=== PATIENT | female | born 1990 | race African-American/Black ===

== ENCOUNTER 2016-09-22 02:33 | Emergency (ER) | payer MEDICAID ==
[2016-09-22] MEDS ORDERED: ONDANSETRON HCL INJ/PF 4 MG/2 ML SDV IV ONE (03:25)
[2016-09-22] MEDS ORDERED: KETOROLAC TROMETHAMINE INJ/PF 30 MG/1 ML SDV IV ONE (03:25)
--- NOTE | 2016-09-22 03:28 | ER Document Report ---
Addendum entered and electronically signed by TYRA GRAY NP 09/22/16 08:31 : Course - Re-evaluation Re-evalutation: 09/22/16 08:28 Patient was evaluated by psych provider this morning and the ED and has arranged for follow-up at [facility] upon discharge from the ED this morning. Patient remains hemodynamically stable, in no distress, calm and cooperative, neurologically intact, able to ambulate independently and steadily, and appears stable for discharge. Fiance at bedside. - Vital Signs Vital signs: Temp Pulse Resp BP Pulse Ox 97.9 F 83 20 121/79 98 09/22/16 08:20 09/22/16 08:20 09/22/16 08:20 09/22/16 08:20 09/22/16 08:20 - Laboratory Result Diagrams: 09/22/16 03:35 09/22/16 03:35 Laboratory results interpreted by me: 09/22/16 09/22/16 09/22/16 03:35 03:35 03:35 Seg Neuts % (Manual) 33 L Eosinophils % (Manual) 7 H Sodium 147.8 H AST 70 H Total Protein 8.4 H Beta HCG, Quant Urine Blood MODERATE H Ur Leukocyte Esterase TRACE H Serum Alcohol 315 H* 09/22/16 03:35 Seg Neuts % (Manual) Eosinophils % (Manual) Sodium AST Total Protein Beta HCG, Quant 28.37 H Urine Blood Ur Leukocyte Esterase Serum Alcohol Discharge - Discharge Clinical Impression: Grief at loss of child Alcohol intoxication Qualifiers: Complication of substance-induced condition: with unspecified complication Qualified Code(s): F10.129 - Alcohol abuse with intoxication, unspecified Condition: Stable Disposition: HOME, SELF-CARE Instructions: Acute Alcohol Intoxication ([facility]) Additional Instructions: Follow up at [facility] this morning as discussed. Return to the Emergency Department for any worsening symptoms or concerns. Referrals: SCOTT GERARDO MD [Primary Care Provider] - Follow up as needed Original Note: ED General - General Chief Complaint: Psych Problem Stated Complaint: ABDOMINAL PAIN, VAGINAL PAIN Notes: Patient is a 26-year-old female that comes emergency department for chief complaint of alcohol intoxication, pains in her breasts, and intermittent cramps in the lower abdomen with some scant vaginal bleeding. Patient states that 5 days ago she had a miscarriage, she is , she states she was at 20 weeks, she states she was in [place] and they delivered the baby for her. She states she has been self-medicating at home with alcohol and has been very upset, she denies SI or HI, she states she is not 100% sure why she came tonight. She denies any daily medications, she denies any recreational drugs she denies any psychiatric history previously. Patient's fianc is at bedside, he verifies her statements. TRAVEL OUTSIDE OF THE [place] IN LAST 30 DAYS: No - Related Data Allergies/Adverse Reactions: iodine [Iodine] Allergy (Verified 11/05/14 01:38) Past Medical History - General Information source: Patient - Social History Smoking Status: Never Smoker Drug Abuse: None Lives with: Spouse/Significant other Family History: Reviewed & Not Pertinent Patient has suicidal ideation: No Patient has homicidal ideation: No Pulmonary Medical History: Reports: Hx Asthma Renal/ Medical History: Denies: Hx Peritoneal Dialysis Surgical Hx: Negative - Immunizations Immunizations up to date: No Hx Diphtheria, Pertussis, Tetanus Vaccination: Yes Review of Systems - Review of Systems Constitutional: No symptoms reported EENT: No symptoms reported Cardiovascular: No symptoms reported Respiratory: No symptoms reported Gastrointestinal: See HPI Genitourinary: No symptoms reported Female Genitourinary: See HPI Musculoskeletal: No symptoms reported Skin: No symptoms reported Hematologic/Lymphatic: No symptoms reported Neurological/Psychological: See HPI Physical Exam - Vital signs Vitals: Temp Pulse Resp BP Pulse Ox 97.2 F 100 16 127/72 H 96 09/22/16 02:46 09/22/16 02:46 09/22/16 02:46 09/22/16 02:46 09/22/16 02:46 Interpretation: Normal - General General appearance: Other - Patient occasionally slurs her words, slightly sedated in appearance, however she is mostly alert, speaks clearly with most sentences, forms clear thoughts and answers questions appropriately - HEENT Head: Normocephalic, Atraumatic Eyes: Normal Conjunctiva: Normal Extraocular movements intact: Yes Eyelashes: Normal Pupils: PERRL Nasal: Normal Mouth/Lips: Normal Mucous membranes: Normal Pharynx: Normal Neck: Normal - Respiratory Respiratory status: No respiratory distress Chest status: Nontender Breath sounds: Normal. No: Decreased air movement, Nonproductive cough, Wheezing Chest palpation: Normal - Cardiovascular Rhythm: Regular. No: Tachycardia Heart sounds: Normal auscultation, S1 appreciated, S2 appreciated Murmur: No - Abdominal Inspection: Other - Slightly rounded abdomen Tenderness: Tender - Very mild generalized tenderness, no significant tenderness noted, no guarding - Back Back: Normal, Nontender. No: Tender, CVA tenderness - Extremities General upper extremity: Normal inspection, Nontender, Normal color, Normal ROM , Normal temperature General lower extremity: Normal inspection, Nontender, Normal color, Normal ROM , Normal temperature, Normal weight bearing. 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 Patient given Toradol and Zofran for complaints of pain, after this she slept soundly and peacefully. 09/22/16 06:51 Patient reevaluated, plan is to continue to sober up and did speak with psychiatry, no current complaints. 09/22/16 07:20 Patient introduced to Tyra AYERS at bedside, patient is alert, appears to be sober, still states that she would like to speak to psychiatry but has no other current complaints. - Vital Signs Vital signs: Temp Pulse Resp BP Pulse Ox 97.2 F 100 16 127/72 H 96 09/22/16 02:46 09/22/16 02:46 09/22/16 02:46 09/22/16 02:46 09/22/16 02:46 - Laboratory Result Diagrams: 09/22/16 03:35 09/22/16 03:35 Laboratory results interpreted by me: 09/22/16 09/22/16 09/22/16 03:35 03:35 03:35 Seg Neuts % (Manual) 33 L Eosinophils % (Manual) 7 H Sodium 147.8 H AST 70 H Total Protein 8.4 H Beta HCG, Quant Urine Blood MODERATE H Ur Leukocyte Esterase TRACE H Serum Alcohol 315 H* 09/22/16 03:35 Seg Neuts % (Manual) Eosinophils % (Manual) Sodium AST Total Protein Beta HCG, Quant 28.37 H Urine Blood Ur Leukocyte Esterase Serum Alcohol Discharge - Discharge Clinical Impression: Grief at loss of child Alcoholic intoxication Qualifiers: Complication of substance-induced condition: with unspecified complication Qualified Code(s): F10.129 - Alcohol abuse with intoxication, unspecified Condition: Stable Disposition: HOME, SELF-CARE
[2016-09-22 03:56] LABS: APPEARANCE,URINE SLIGHTLY-CLOUDY; BILIRUBIN,URINE NEGATIVE (NEGATIVE); GLUCOSE, URINE NEGATIVE (NEGATIVE); KETONES,URINE NEGATIVE (NEGATIVE); LEUKOCYTE ESTERASE,URINE TRACE (NEGATIVE); NITRITE,URINE NEGATIVE (NEGATIVE); PROTEIN,URINE NEGATIVE (NEGATIVE); URINE SPECIFIC GRAVITY 1.014; UROBILINOGEN,URINE NEGATIVE mg/dL (<2.0)
[2016-09-22 04:08] LABS: ALANINE AMINOTRANSFERASE 41 U/L (9-52); ALBUMIN 4.2 g/dL (3.5-5.0); ALKALINE PHOSPHATASE 89 U/L (38-126); ANION GAP 13 (5-19); ASPARTATE AMINO TRANSFERASE 70 U/L (14-36); BILIRUBIN,TOTAL 0.6 mg/dL (0.2-1.3); BLOOD UREA NITROGEN 7 mg/dL (7-20); CALCIUM 9.3 mg/dL (8.4-10.2); CARBON DIOXIDE 28 mmol/L (22-30); CHLORIDE 107 mmol/L (98-107); CREATININE RESULT 0.66 mg/dL (0.52-1.25); GLUCOSE 82 mg/dL (75-110); POTASSIUM 4.8 mmol/L (3.6-5.0); SODIUM 147.8 mmol/L (137-145); TOTAL PROTEIN 8.4 g/dL (6.3-8.2); URINE BARBITURATES SCREEN NEGATIVE; URINE METHADONE SCREEN NEGATIVE; URINE OPIATES LOW NEGATIVE
[2016-09-22 04:11] LABS: HEMATOCRIT 36.3 % (36.0-47.0); HEMOGLOBIN 12.4 g/dL (12.0-15.5); HGB HCT DIFFERENCE 0.9; MEAN CORPUSCULAR HEMOGLOBIN 32.7 pg (27.0-33.4); MEAN CORPUSCULAR VOLUME 96 fl (80-97); RED BLOOD COUNT 3.78 10^6/uL (3.72-5.28); WHITE BLOOD COUNT 6.6 10^3/uL (4.0-10.5)
[2016-09-22 04:20] LABS: ALCOHOL 315 mg/dL (NONE DETECTED)
[2016-09-22 04:27] LABS: BASOPHILS % (MANUAL) 0 % (0-2); EOSINOPHILS % (MANUAL) 7 % (0-6); LYMPHOCYTES % (MANUAL) 45 % (13-45); TOTAL CELLS COUNTED 100; TOXIC GRANULATION SLIGHT
[2016-09-22 04:28] LABS: BURR CELLS SLIGHT; OVALOCYTES SLIGHT; POIKILOCYTOSIS SLIGHT; SCHISTOCYTES SLIGHT; TEAR DROP CELLS SLIGHT
[2016-09-22 07:28] LABS: URINE PHENCYCLIDINE SCREEN NEGATIVE
[2016-09-22 08:23] VITALS: BP 121/79
--- NOTE | 2016-09-24 14:17 | PSYCHOLOGICAL NOTE ---
Psych Note - Psych Note Psych Note: Patient is a 26-year-old female that comes emergency department for chief complaint of alcohol intoxication, pains in her breasts, and intermittent cramps in the lower abdomen with some scant vaginal bleeding. Patient states that 5 days ago she had a miscarriage, she is , she states she was at 20 weeks, she states she was in [place] and they delivered the baby for her. She states she has been self-medicating at home with alcohol and has been very upset, she denies SI or HI, she states she is not 100% sure why she came tonight. Patient disclosed that she had a miscarriage on the eighth and that she was 20 weeks along. She continued disclosed that she found that her uncle the next day however he actually the day she miscarried. Patient denies suicidal and homicidal ideation but admits to drinking alcohol as a way to cope. Patient states that she is having a hard time dealing with the pain in her chest. Patient states she thinks she had milk come in for the baby that she lost. Patient's fianc was at bedside and stated that has been very hard because it's only been 1 week. Patient is alert and orientated to person place time and circumstance. Patient' s mood is dysphoric with tearful affect. Patient denies suicidal homicidal ideation. Patient denies auditory visual hallucinations; no delusions are noted. Thought process is logical organized and linear however suffering from bereavement. Conversational speech was within normal rate tone and prosody. Eye contact was well maintained. Intellectual abilities appear within average range. Attention and concentration are fair. Insight, judgment, impulse control are fair. Bereavement Impression\plan: Patient is psychiatrically cleared for discharge. Patient is suffering from multiple losses and going through bereavement. At this time he would not be complicated bereavement has it is only been 1 week. Patient agrees to go to outpatient services. Patient's agrees to lock up all medications and alcohol in the home as to not to attempt either one of them to self medicate. Clinician conducted psychoeducation on grief process; i.e. the stages of grief. Patient will be following up with A outpatient services upon release from [facility] ED. Attending physician is in agreement with recommendations and disposition.
== END 2016-09-22 08:37 | disposition home or self-care (01) ==
LOC: ER 02:33
DX: O99.345 Other mental disorders complicating the puerperium (principal); F43.21 Adjustment disorder with depressed mood; O99.315 Alcohol use complicating the puerperium; F10.120 Alcohol abuse with intoxication, uncomplicated; Y90.8 Blood alcohol level of 240 mg/100 ml or more; O92.29 Other disorders of breast associated with pregnancy and the puerperium; O90.89 Other complications of the puerperium, not elsewhere classified; R10.30 Lower abdominal pain, unspecified; O99.53 Diseases of the respiratory system complicating the puerperium; J45.909 Unspecified asthma, uncomplicated
CPT/HCPCS: 99284; 96374; 96375; 36415; 87086; 80307 ×2; 84702; 85025; 80053; 81001; J1885; J2405

== ENCOUNTER 2016-10-03 20:47 | Emergency (ER) | payer MEDICAID ==
--- NOTE | 2016-10-03 21:25 | ER Document Report ---
ED Medical Screen (RME) - General Stated Complaint: ABDOMINAL PAIN Time seen by provider: 21:24 Mode of Arrival: Ambulatory Information source: Patient TRAVEL OUTSIDE OF THE [place] IN LAST 30 DAYS: No - HPI Patient complains to provider of: suprapubic pain Onset: Yesterday Onset/Duration: Gradual Quality of pain: Achy, Cramping Severity: Moderate Pain Level: 3 Associated Symptoms: Nausea Exacerbated by: Denies Relieved by: Denies Similar symptoms previously: Yes Recently seen / treated by doctor: Yes - recent miscarriage 3 weeks ago - Related Data Allergies/Adverse Reactions: iodine [Iodine] Allergy (Verified 11/05/14 01:38) Past Medical History Pulmonary Medical History: Reports: Hx Asthma Renal/ Medical History: Denies: Hx Peritoneal Dialysis - Immunizations Immunizations up to date: No Hx Diphtheria, Pertussis, Tetanus Vaccination: Yes
[2016-10-03] MEDS ORDERED: ACETAMINOPHEN 325 MG TABLET PO ONE (21:31)
[2016-10-03 21:50] LABS: HEMATOCRIT 40.5 % (36.0-47.0); HEMOGLOBIN 13.8 g/dL (12.0-15.5); HGB HCT DIFFERENCE 0.9; MEAN CORPUSCULAR HEMOGLOBIN 33.6 pg (27.0-33.4); MEAN CORPUSCULAR VOLUME 99 fl (80-97); RED CELL DISTRIBUTION WIDTH 13.5 % (11.5-14.0); WHITE BLOOD COUNT 5.6 10^3/uL (4.0-10.5)
[2016-10-03 21:58] LABS: ALANINE AMINOTRANSFERASE 30 U/L (9-52); ALKALINE PHOSPHATASE 82 U/L (38-126); ANION GAP 14 (5-19); ASPARTATE AMINO TRANSFERASE 40 U/L (14-36); BILIRUBIN,TOTAL 0.6 mg/dL (0.2-1.3); BLOOD UREA NITROGEN 7 mg/dL (7-20); CALCIUM 10.1 mg/dL (8.4-10.2); CARBON DIOXIDE 25 mmol/L (22-30); CHLORIDE 106 mmol/L (98-107); CREATININE RESULT 0.73 mg/dL (0.52-1.25); GLUCOSE 83 mg/dL (75-110); LIPASE 232.4 U/L (23-300); POTASSIUM 4.6 mmol/L (3.6-5.0); SODIUM 145.3 mmol/L (137-145); TOTAL PROTEIN 8.6 g/dL (6.3-8.2)
[2016-10-03 22:08] LABS: APPEARANCE,URINE CLEAR; BILIRUBIN,URINE NEGATIVE (NEGATIVE); GLUCOSE, URINE NEGATIVE (NEGATIVE); KETONES,URINE NEGATIVE (NEGATIVE); LEUKOCYTE ESTERASE,URINE NEGATIVE (NEGATIVE); NITRITE,URINE NEGATIVE (NEGATIVE); PROTEIN,URINE NEGATIVE (NEGATIVE); URINE SPECIFIC GRAVITY 1.003; UROBILINOGEN,URINE NEGATIVE mg/dL (<2.0)
[2016-10-03 22:09] LABS: BASOPHILS % (MANUAL) 1 % (0-2); EOSINOPHILS % (MANUAL) 6 % (0-6); LYMPHOCYTES % (MANUAL) 64 % (13-45); TOTAL CELLS COUNTED 100
[2016-10-03 22:11] LABS: HYPOCHROMASIA SLIGHT
[2016-10-03] MEDS ORDERED: HYDROCODONE/ACETAMINOPHEN 5-325 MG 6 TAB/DSPK PO PRN (22:39)
--- NOTE | 2016-10-03 22:40 | ER Document Report ---
ED GI/ - General Chief Complaint: Pelvic Pain Stated Complaint: ABDOMINAL PAIN Time seen by provider: 22:39 Mode of Arrival: Ambulatory Information source: Patient TRAVEL OUTSIDE OF THE [place] IN LAST 30 DAYS: No - HPI Patient complains to provider of: Abdominal pain Onset: Last week Timing/Duration: Persistent Quality of pain: Achy, Cramping Severity at maximum: Mild Severity in ED: Mild Pain Level: 1 Location: Suprapubic, Pelvis Vaginal bleeding (Compared to normal period): None Associated symptoms: Dysuria Exacerbated by: Denies Relieved by: Denies Similar symptoms previously: Yes Recently seen / treated by doctor: Yes Notes: 10/04/16 01:19 Patient is a 26-year-old female who presents to the emergency room complaining of suprapubic pelvic pain that's been going on for the past week or so, she reports a history of a miscarriage approximately 3 weeks ago, she denies any vaginal bleeding or irregular discharge, she is having some pressure when urinating, denies any fever, no diarrhea, having normal bowel movements, states she missed a follow-up with [facility] recently - Related Data Allergies/Adverse Reactions: iodine [Iodine] Allergy (Verified 10/03/16 21:40) Past Medical History - General Information source: Patient - Social History Smoking Status: Never Smoker Chew tobacco use (# tins/day): No Frequency of alcohol use: None Drug Abuse: None Family History: Reviewed & Not Pertinent Patient has suicidal ideation: No Patient has homicidal ideation: No Pulmonary Medical History: Reports: Hx Asthma Renal/ Medical History: Denies: Hx Peritoneal Dialysis - Immunizations Immunizations up to date: No Hx Diphtheria, Pertussis, Tetanus Vaccination: Yes Review of Systems - Review of Systems Constitutional: No symptoms reported EENT: No symptoms reported Cardiovascular: No symptoms reported Respiratory: No symptoms reported Gastrointestinal: See HPI Genitourinary: See HPI Female Genitourinary: See HPI Musculoskeletal: No symptoms reported Skin: No symptoms reported Hematologic/Lymphatic: No symptoms reported Neurological/Psychological: No symptoms reported -: Yes All other systems reviewed and negative Physical Exam - Vital signs Vitals: Temp Pulse Resp BP Pulse Ox 97.8 F 80 16 108/68 98 10/03/16 22:40 10/03/16 22:40 10/03/16 22:40 10/03/16 22:40 10/03/16 22:40 Interpretation: Normal - General General appearance: Appears well, Alert - HEENT Head: Normocephalic, Atraumatic Eyes: Normal Pupils: PERRL - Respiratory Respiratory status: No respiratory distress Chest status: Nontender Breath sounds: Normal Chest palpation: Normal - Cardiovascular Rhythm: Regular Heart sounds: Normal auscultation Murmur: No - Abdominal Inspection: Normal Distension: No distension Bowel sounds: Normal Tenderness: Nontender Organomegaly: No organomegaly - Back Back: Normal, Nontender - Extremities General upper extremity: Normal inspection, Nontender, Normal color, Normal ROM , Normal temperature General lower extremity: Normal inspection, Nontender, Normal color, Normal ROM , Normal temperature, Normal weight bearing. No: Tena's sign - Neurological Neuro grossly intact: Yes Cognition: Normal Orientation: AAOx4 [place] Coma Scale Eye Opening: Spontaneous [place] Coma Scale Verbal: Oriented [place] Coma Scale Motor: Obeys Commands [place] Coma Scale Total: 15 Speech: Normal Motor strength normal: LUE, RUE, LLE, RLE Sensory: Normal - Psychological Associated symptoms: Normal affect, Normal mood - Skin Skin Temperature: Warm Skin Moisture: Dry Skin Color: Normal Course - Re-evaluation Re-evalutation: 10/04/16 01:20 Physical exam findings are unremarkable, lab findings unremarkable and discussed with patient, she was given a dose of Tylenol in the emergency room and reports feeling quite a bit better, she was advised to follow-up with OB/ [facility] within the next 1-2 days or return if symptoms worsen, patient acknowledges understanding and agreement with this plan - Vital Signs Vital signs: Temp Pulse Resp BP Pulse Ox 97.8 F 80 16 108/68 98 10/03/16 22:40 10/03/16 22:40 10/03/16 22:40 10/03/16 22:40 10/03/16 22:40 - Laboratory Result Diagrams: 10/03/16 21:31 10/03/16 21:31 Laboratory results interpreted by me: 10/03/16 10/03/16 21:31 21:31 MCV 99 H MCH 33.6 H Seg Neuts % (Manual) 15 L Lymphocytes % (Manual) 64 H Abs Neuts (Manual) 0.8 L Sodium 145.3 H AST 40 H Total Protein 8.6 H Discharge - Discharge Clinical Impression: Abdominal pain Qualifiers: Abdominal location: lower abdomen, unspecified Qualified Code(s): R10.30 - Lower abdominal pain, unspecified Condition: Stable Disposition: HOME, SELF-CARE Instructions: Abdominal Pain ([facility]), [facility], Oral Narcotic Medication ( [facility]) Additional Instructions: Follow up with your primary care provider and [facility] in one to 2 days. Return to the emergency room immediately if symptoms worsen or any additional concerns. Prescriptions: Tramadol HCl/Acetaminophen [Ultracet 37.5 mg/325 mg Tablet] 1 each PO Q6 #20 tablet Referrals: SCOTT GERARDO MD [Primary Care Provider] - Follow up as needed
[2016-10-03 22:54] VITALS: BP 108/68
== END 2016-10-03 22:40 | disposition home or self-care (01) ==
LOC: ER 20:47
DX: R10.30 Lower abdominal pain, unspecified (principal); R30.0 Dysuria; R10.2 Pelvic and perineal pain
CPT/HCPCS: 99284; 36415; 87086; 83690; 84703; 85025; 80053; 81001; J3490

== ENCOUNTER 2016-10-21 20:03 | Emergency (ER) | payer MEDICAID | END 2016-10-21 20:55 | disposition left against medical advice (07) | LOC: ER 20:03 | DX: Z53.21 Procedure and treatment not carried out due to patient leaving prior to being seen by health care provider (principal) ==

== ENCOUNTER 2016-12-18 23:26 | Emergency (ER) | payer MEDICAID | END 2016-12-18 23:30 | disposition left against medical advice (07) | LOC: ER 23:26 | DX: Z53.21 Procedure and treatment not carried out due to patient leaving prior to being seen by health care provider (principal) ==